=== PATIENT | male | born 1990 | race Caucasian/White ===

== ENCOUNTER 2017-04-17 04:27 | Emergency (ER) | payer OTHER ==
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
[2017-04-17] MEDS ORDERED: HYDROCODONE/ACETAMINOPHEN 5-325 MG 6 TAB/DSPK PO PRN (06:29)
[2017-04-17 07:00] VITALS: BP 132/82
== END 2017-04-17 07:06 | disposition home or self-care (01) ==
LOC: ER 04:27
DX: S43.102A Unspecified dislocation of left acromioclavicular joint, initial encounter (principal); M25.512 Pain in left shoulder; V29.40XA Motorcycle driver injured in collision with unspecified motor vehicles in traffic accident, initial encounter
CPT/HCPCS: 99284; 73030; 70450; 72125; L3650; L0120